=== PATIENT | male | born 1975 | race Caucasian/White ===

== ENCOUNTER 2019-06-22 00:22 | Day surgery (SDC) | payer OTHER, SELFPAY ==
[2019-06-11 10:19] VITALS: BMI 28.7
[2019-06-22] VITALS (9 sets, daily range): BP systolic 135–163; BP diastolic 73–100; PULSE 50–81; RESP 13–16; TEMP 36.4–37.2; O2SAT 97–100
[2019-06-22] MEDS: LACTATED RINGERS 1,000 ML 30 ML IV CONT ×2 (06:55→09:26)
--- NOTE | 2019-06-22 07:21 | WPDHPUPDATE1 ---
History and Physical Update Update Date/Time: 06/22/19 07:21 History and Physical has been reviewed, including an updated exam of the patient. There are NO changes in the patient's condition. Risks, benefits, and alternatives have been discussed and questions answered. Patient agrees to proceed with procedure.
--- NOTE | 2019-06-22 07:43 | P.PNAN_ITS ---
Anes - Initial Pre Proc Eval Procedure: Operation Date: 06/22/19 08:15 Proposed Procedures p Left Knee Bursal Cyst Excision - Carlos Manuel Gomez MD Date/Time: 06/22/19 07:43 Surgeon: Carlos Manuel Gomez MD Pre Op Diagnosis: Left Prepatella bursa cyst Patient Data Age: 43 Gender: M Height: 1.91 m Weight: 104.7 kg Last Vital Signs Temp 37.2 C 06/22/19 07:20 Pulse 50 L 06/22/19 07:20 Resp 16 06/22/19 07:20 BP 135/73 06/22/19 07:20 Pulse Ox 97 06/22/19 07:20 Allergies Allergy/AdvReac Type Severity Reaction Status Date / Time No Known Allergies Allergy Unknown Unverified 06/22/19 06:42 Home Medications Medication Instructions Recorded Confirmed Type acyclovir 800 mg tablet 800 mg PO DAILY 05/30/19 06/22/19 History leflunomide 20 mg tablet 20 mg PO DAILY 05/30/19 06/22/19 History omega 6-czr-rby-fish oil 1,000 mg 1 cap PO DAILY 05/30/19 06/22/19 History (120 mg-180 mg) capsule clomiphene citrate 50 mg PO DAILY 06/11/19 06/22/19 History multivitamin 1 tablet PO DAILY 06/11/19 06/22/19 History prednisolone acetate 1 drp RIGHTEYE EVERY OTHER DAY 06/11/19 06/22/19 History Patient hx anesthesia problems: none Family hx anesthesia problems: none [facility] Social History Social History Smoking status: Former smoker Tobacco type: e-cigarettes Alcohol intake: current Anes - Eval Final PreProcedure Day of Procedure 06/22/19 07:43 Patient weight: overweight Heart: regular rate and rhythm Lungs: clear to auscultation and normal air movement Airway: Mallampati scale class II Neurological: alert and oriented Last oral intake: >/= 8 hours ASA classification: II Emergent: no Anesthetic plan: proceed Anesthesia type and monitoring: general LMA and standard monitoring Informed Consent: The patient's anesthetic plan and its attendant risks and benefits were discussed with the patient/family/POA. Questions were solicited and answers provided to the satisfaction of the patient/family/POA.
[2019-06-22] MEDS: ceFAZolin 2 GM/D5W 50 ML 2 GM/50 ML BAG IVPB (08:10)
[2019-06-22] MEDS: BUPIVACAINE/EPINEPHRINE 0.5% 30 ML VIAL INFILTRATE (08:20)
--- NOTE | 2019-06-22 09:26 | P.OP_ITS ---
Procedure Note - Detailed Date of procedure: 06/22/19 Pre-op diagnosis: Left Prepatella bursa cyst Post-op diagnosis: same Procedure performed: Ganglion cyst excision left knee. Description of procedure: Large 3 cm cyst at the medial proximal tibia, adjacent to the patellar tendon. Tissue disruption of periosteum proximal to the joint. Typical mucinous gelly like fluid. Tissue sleeve reapproximated to bone using jocelynn holes to pass multiple vicryl suture. Deed space closed and scar revision performed. Anesthesia: GLMA Surgeon: Carlos Manuel Gomez MD Estimated blood loss (mL): 5 Tourniquet time (min): 52 Drains: No Packing: No Pathology: none sent Complications: None Condition: stable Disposition: PACU Findings: A general anesthetic was administered. Preoperative antibiotics were given. The limb was prepped and draped in the usual sterile fashion. A well- padded tourniquet was placed on the thigh. The limb was exsanguinated and the tourniquet inflated to 300 mmHg throughout the procedure. The distal aspect of the previous midline incision was reopened sharply. A large ganglion cyst was immediately identified. It was smaller than a golf ball. Careful dissection was brought around to the origin stalk of the cyst. This tracked along the proximal medial tibia proximal towards the joint line. The soft tissues were attenuated and not adherent to the periosteum and bone. The distal medial aspect of the patellar tendon was involved with slight disruption of the distal fibers. After complete removal of the cyst, attention was turned to the stalk area. This was roughened with a rasp. Three bur holes were created at 2 mm. This allowed passage of suture from distal to proximal into 2 of the separate jocelynn holes in an inverted triangular shape. 1. Vicryl suture could then be passed into the soft tissue and therefore secured down to bone. This was done to attempt to limit the possibility of joint fluid leaking into the area again. The repair was supplemented with multiple 2 0 Vicryl. Finally the subcutaneous tissue was closed with 3 0 Monocryl suture and a running 4 0 Monocryl suture. This tissue was a bit stretched out particularly centrally. The scar had widened and a few mm of the medial skin edge was excised sharply.
== END 2019-06-22 11:22 | disposition home or self-care (01) ==
PROVIDERS: PCP Family Medicine Adolescent Medicine; Visit Provider Orthopaedic Surgery
PROC: (CPT 27345; principal; 2019-06-22 08:15)
DX: M67.462 Ganglion, left knee (principal); M70.42 Prepatellar bursitis, left knee; M06.9 Rheumatoid arthritis, unspecified; Z87.891 Personal history of nicotine dependence
CPT/HCPCS: 27345; J0690; J2250; J3010; J7120

== ENCOUNTER → 2022-09-03 13:06 | Outpatient (CLI) | payer OTHER, SELFPAY ==
--- NOTE | ~2022-09-03 | XR_ITS ---
EXAMINATION: XR chest 2V 09/03/2022 13:30 INDICATION: Long-term drug therapy PROCEDURE: 2 view chest COMPARISON: No prior studies FINDINGS: The lungs are clear. The cardiomediastinal silhouette is within normal limits. There are no pleural effusions. There is no pneumothorax suspected. IMPRESSION: 1: NO ACUTE CARDIOPULMONARY DISEASE. Reviewed, dictated and finalized at location B.
== END ==
PROVIDERS: PCP Family Medicine Adolescent Medicine
DX: Z79.899 Other long term (current) drug therapy (principal)
CPT/HCPCS: 71046

== ENCOUNTER 2024-03-02 05:19 | Day surgery (SDC) | payer OTHER, SELFPAY ==
[2024-02-21 15:28] VITALS: BMI 30.7
[2024-03-02 06:55] VITALS: BP 153/96; PULSE 86; RESP 18; TEMP 36.3; O2SAT 100
[2024-03-02] MEDS: LACTATED RINGERS 1,000 ML 150 ML IV CONT (07:03)
--- NOTE | 2024-03-02 07:12 | WPDANESEPPF ---
Anes - Initial Pre Proc Eval Procedure: Operation Date: 03/02/24 08:00 Proposed Procedures p Screening Colonoscopy - Delfin Loera MD Date/Time: 03/02/24 07:12 Surgeon: Delfin Loera MD Pre Op Diagnosis: neoplasm screening Patient Data Age: 48 Gender: M Height: 1.91 m Weight: 107.9 kg Last Vital Signs Temp 97.3 F L 03/02/24 06:55 Pulse 86 03/02/24 06:55 Resp 18 03/02/24 06:55 BP 153/96 H 03/02/24 06:55 Pulse Ox 100 03/02/24 06:55 O2 Del Method Room Air 03/02/24 06:55 Allergies Allergy/AdvReac Type Severity Reaction Status Date / Time No Known Allergies Allergy Verified 03/02/24 06:53 Home Medications Medication Instructions Recorded Confirmed Type adalimumab 40 mg/0.4 mL 40 mg subcut .every other week 09/20/23 03/02/24 History subcutaneous pen kit (Humira(CF) Pen) lisinopril 30 mg tablet 30 mg PO DAILY #90 tabs 11/17/23 03/02/24 Rx Patient hx anesthesia problems: none Family hx anesthesia problems: none Results Review: All pre-operative results and documents have been reviewed as part of the pre-operative evaluation. COUNTS INCLUDE 234 BEDS AT THE [facility] Past Medical History Medical History Prepatellar bursitis, left knee Rheumatoid arthritis Surgical History Surgical History History of ankle surgery (~10/1999) History of arthroscopy of left knee (~08/2018) History of repair of anterior cruciate ligament of left knee (~11/2003) Family History Family History Unknown Heart disease Grandparent Acute myocardial infarction Cerebrovascular accident Heart disease Father Acute myocardial infarction Diabetes mellitus Heart disease Hypertension Mother Asthma Rheumatoid arthritis Social History Social History Smoking status: Current every day smoker Tobacco type: cigarettes Smoking end date: 05/20/16 Alcohol intake: current Drinks per week: 12 Substance use: never Substance use type: marijuana Other substance usage details: occas Living arrangements: with family Occupation/Education: occupation Gender identity (if verbalized by the patient): Male Sexual Orientation (if Verbalized by the Patient): Straight or Heterosexual Spiritual care concerns: No Agree to blood products: Yes Anes - Eval Final PreProcedure Day of Procedure 03/02/24 07:12 Patient weight: normal Heart: regular rate and rhythm Lungs: clear to auscultation Airway: Mallampati scale class II Neurological: alert and oriented Last oral intake: >/= 8 hours ASA classification: III Emergent: no Anesthetic plan: proceed Anesthesia type and monitoring: general and standard monitoring Results Review: All pre-operative results and documents have been reviewed as part of the pre-operative evaluation. HTN, STEPHANIE noncompliant w CPAP. Informed Consent: The patient's anesthetic plan and its attendant risks and benefits were discussed with the patient/family/POA. Questions were solicited and answers provided to the satisfaction of the patient/family/POA.
--- NOTE | 2024-03-02 07:53 | PM.HPGS ---
History of Present Illness History of Present Illness Consent: Risks, benefits, and alternatives have been discussed and questions answered. Patient agrees to proceed with procedure. Chief complaint: neoplasm screening Narrative: Marlo Vergara is a 48 year old male here for first screening colonoscopy Review of Systems Review of Systems: All systems reviewed & are unremarkable except as noted in HPI and below PMFSH Past Medical History Medical History Prepatellar bursitis, left knee Rheumatoid arthritis Surgical History Surgical History History of ankle surgery (~10/1999) History of arthroscopy of left knee (~08/2018) History of repair of anterior cruciate ligament of left knee (~11/2003) Family History Family History Unknown Heart disease Grandparent Acute myocardial infarction Cerebrovascular accident Heart disease Father Acute myocardial infarction Diabetes mellitus Heart disease Hypertension Mother Asthma Rheumatoid arthritis Social History Social History Smoking status: Current every day smoker Tobacco type: cigarettes Smoking end date: 05/20/16 Alcohol intake: current Drinks per week: 12 Substance use: never Substance use type: marijuana Other substance usage details: occas Living arrangements: with family Occupation/Education: occupation Gender identity (if verbalized by the patient): Male Sexual Orientation (if Verbalized by the Patient): Straight or Heterosexual Spiritual care concerns: No Agree to blood products: Yes Meds Home Medications and Allergies Home Medications Medication Instructions Recorded Confirmed Type adalimumab 40 mg/0.4 mL 40 mg subcut .every other week 09/20/23 03/02/24 History subcutaneous pen kit (Humira(CF) Pen) lisinopril 30 mg tablet 30 mg PO DAILY #90 tabs 11/17/23 03/02/24 Rx Allergies Allergy/AdvReac Type Severity Reaction Status Date / Time No Known Allergies Allergy Verified 03/02/24 06:53 Vital Signs Vital Signs - 24 hr 03/02/24 06:55 Temperature 97.3 F L Pulse Rate 86 Respiratory Rate 18 Blood Pressure 153/96 H Pulse Oximetry 100 Oxygen Delivery Room Air Exam Const: General: comfortable and no acute distress HENMT: Face/Nose/Sinus: Normal nares present Eyes: General: appearance normal, both eyes and all related structures Neck: Neck: no JVD Resp: Auscultation: clear to auscultation bilaterally Cardio: Rate: regular rate Rhythm: regular rhythm GI: Inspection: non-distended GI Palp: Yes Soft to palpation Skin: General skin exam: normal color Neuro: General: gait normal Speech: normal speech Extrem: General: normal to inspection Psych: Mental Status: mental status grossly normal Assessment and Plan Assessment and plan (1) Colon cancer screening: Code(s): Z12.11 - Encounter for screening for malignant neoplasm of colon Status: Acute Assessment and Plan: colonoscopy
[2024-03-02 08:13] VITALS: BP 148/83; PULSE 70; RESP 16; O2SAT 94
[2024-03-02 08:23] VITALS: BP 121/88; PULSE 69; RESP 20; O2SAT 96
[2024-03-02 08:33] VITALS: BP 144/91; PULSE 59; RESP 18; O2SAT 99
== END 2024-03-02 08:38 | disposition home or self-care (01) ==
PROVIDERS: PCP Family Medicine Adolescent Medicine; Referring Provider Nurse Practitioner Family; Visit Provider Internal Medicine Gastroenterology
PROC: 0DJD8ZZ Inspection of Lower Intestinal Tract, Via Natural or Artificial Opening Endoscopic (ICD-10-PCS; CPT 45378; principal; 2024-03-02 08:00)
DX: Z12.11 Encounter for screening for malignant neoplasm of colon (principal); K64.8 Other hemorrhoids; M06.9 Rheumatoid arthritis, unspecified; Z79.620 Long term (current) use of immunosuppressive biologic; F17.210 Nicotine dependence, cigarettes, uncomplicated; F12.90 Cannabis use, unspecified, uncomplicated
CPT/HCPCS: 45378; J2003; J2704; J7120

== ENCOUNTER 2024-05-25 13:45 | Outpatient (CLI) | payer OTHER, SELFPAY ==
--- NOTE | ~2024-05-25 | MR_ITS ---
EXAMINATION: MR foot LT wo/w con DATE: 05/25/2024 14:40 INDICATION: Left foot metatarsalgia TECHNIQUE: Magnetic resonance imaging (MRI) of the left fore/mid foot was performed without and with body mL Multihance intravenous contrast. Sequences included sagittal T1-weighted FSE, sagittal fluid sensitive FSE STIR, coronal PD-weighted FS FSE, coronal T1-weighted FSE, axial PD-weighted FS FSE, ax ial PD-weighted FSE, axial T1-weighted FS FSE and postcontrast axial, sagittal and coronal T1-weighte d FS FSE. COMPARISON: None FINDINGS: No fractures. Mild hallux valgus with moderate osteoarthritis at the first metatarsophalangeal joint with mild subarticular edema-like signal change at both sides of the joint space. There is a small jarad int effusion with mild synovitis at the first metatarsophalangeal joint. The third toe is clawed with hyperexpansion of the third metatarsophalangeal joint where there is als o moderate osteoarthritis. The fourth and fifth toes are also clawed with disruption of the plantar p late complexes and dorsal dislocation in addition to hyperextension at the metatarsophalangeal joints . There is subluxation of the flexor tendons of the fourth toe which pass medial to the head of the f ourth metatarsal. There is atrophy of the plantar fat pad overlying the heads of the third, fourth an d fifth metatarsals. There is mild increased T2 signal associated with T1 hyperintense marrow filling what appear to be pr ior lytic lesions either chronic erosions or degenerative cystlike changes at the medial head of the first metatarsal and more extensively throughout the head of the fourth metatarsal. There is addition al mild polyarticular osteoarthritis at the level of the tarsometatarsal and interphalangeal joints. Intrinsic musculature of the foot is unremarkable. The Lisfranc ligament complex is normal. Aside fro m the medial subluxation of the flexor tendons to the fourth toe the visualized portions of the flexo r and extensor tendons of the foot appear normal with no tenosynovitis. The intrinsic musculature of the foot is unremarkable. IMPRESSION: 1. Mild hallux valgus with moderate osteoarthritis at the first metatarsophalangeal joint. 2. The third-fifth toes are clawed, more severe at the fourth and fifth toes where there is secondary disruption of the plantar plate complexes and dorsal dislocation at the metatarsophalangeal joints. Reviewed, dictated and finalized at location B. GER COMPLIANCE IMPRESSION: 1. Mild hallux valgus with moderate osteoarthritis at the first metatarsophalan geal joint. 2. The third-fifth toes are clawed, more severe at the fourth and fifth toes wh ere there is secondary disruption of the plantar plate complexes and dorsal dis location at the metatarsophalangeal joints.
== END 2024-05-25 13:46 | disposition home or self-care (01) ==
LOC: MICIMG 13:51
PROVIDERS: PCP Family Medicine Adolescent Medicine; Visit Provider Podiatrist Foot & Ankle Surgery
DX: M06.872 Other specified rheumatoid arthritis, left ankle and foot (principal); M20.12 Hallux valgus (acquired), left foot; M19.072 Primary osteoarthritis, left ankle and foot; M21.532 Acquired clawfoot, left foot
CPT/HCPCS: 73720; A9577